=== PATIENT | male | born 1930 | race Caucasian/White ===

== ENCOUNTER 2016-09-02 23:49 | Inpatient (IN) | payer MEDICARE, BC ==
[~2016-09-02] VITALS: Ht 162.6 cm; Wt 71.5 kg
[~2016-09-02 23:49] MED LIST: ACYC-57 PO; CEPH-368 PO; DICL1TAB49 PO; DULO30CA2 PO; EZET1TAB4 PO; FINA5TAB4 PO; GLUC500T8 PO; HYDR-3138 PO; HYDR25TA6 PO; LEVO500T33 PO; Levofloxacin PO; MULT-82 PO; OXYC5CAP4 PO; PHEN100C PO; POTA20PA8 PO; TERA1CAP3 PO
[2016-09-03] VITALS (7 sets, daily range): BP systolic 96–133; BP diastolic 49–71
[2016-09-03] MEDS ORDERED: ONDANSETRON 2MG/ML, 2ML IVPush ONE
[2016-09-03] MEDS ORDERED: SODIUM CHLORIDE 0.9% 1,000ML IVBOLUS ONE
[2016-09-03] MEDS ORDERED: SODIUM CHLORIDE FLUSH 10ML SYR IVF ONE
[2016-09-03] MEDS ORDERED: MORPHINE SULFATE 4 MG/ML, 1ML IVPush PRN
[2016-09-03] MEDS ORDERED: MORPHINE SULFATE 4 MG/ML, 1ML ONE ×2 (00:14→00:45)
[2016-09-03] MEDS ORDERED: ONDANSETRON 2MG/ML, 2ML ONE (00:15)
[2016-09-03 00:23] LABS: ASPARTATE AMINO TRANSFERASE 59 U/L (15-37); BLOOD UREA NITROGEN 24 mg/dL (7-18)
[2016-09-03 00:51] LABS: PATH.CAST-FLAG NOT PRESENT; SPERM-FLAG NOT PRESENT; SRC-FLAG NOT PRESENT; XTAL-FLAG NOT PRESENT; YLC-FLAG NOT PRESENT
[2016-09-03] MEDS ORDERED: FENTANYL PF 100 MCG/2ML IVPush PRN (01:00)
[2016-09-03] MEDS ORDERED: CEFTRIAXONE PMX 1GM/50ML 50 ML ONE (01:04)
[2016-09-03] MEDS ORDERED: CEFTRIAXONE PMX 1GM/50ML 50 ML IV ONE (01:30)
[2016-09-03] MEDS ORDERED: HYDR-3240 PO (01:49)
[2016-09-03] MEDS ORDERED: DICL1TAB49 PO (01:49)
[2016-09-03] MEDS ORDERED: FESO4TAB PO (01:49)
[2016-09-03] MEDS ORDERED: FINA5TAB4 PO (01:49)
[2016-09-03] MEDS ORDERED: EZET1TAB4 PO (01:49)
[2016-09-03] MEDS ORDERED: OXYC5CAP4 PO (01:49)
[2016-09-03] MEDS ORDERED: DULO30CA2 PO (01:50)
[2016-09-03] MEDS ORDERED: SODIUM CHLORIDE 0.9%, 500ML IVBOLUS ONE (02:30)
[2016-09-03] MEDS ORDERED: DOCUSATE 100 MG CAPSULE PO PRN (02:30)
[2016-09-03] MEDS ORDERED: ONDANSETRON 2MG/ML, 2ML IVPush PRN (02:30)
[2016-09-03] MEDS ORDERED: PROMETHAZINE 25 MG/ML, 1ML IM PRN (02:30)
[2016-09-03] MEDS: POTASSIUM CHLORIDE 20 MEQ TAB.ER.PRT PO SCH ×4 (02:30→18:41)
[2016-09-03] MEDS ORDERED: BISACODYL 10 MG SUPP PR PRN (02:30)
[2016-09-03] MEDS ORDERED: POLYETHYLENE GLYCOL 17 GM PACKET PO PRN (02:30)
[2016-09-03] MEDS: SODIUM CHLORIDE 0.9% 1,000 ML IV SCH ×3 (03:52→18:31)
[2016-09-03 06:20] LABS: ASPARTATE AMINO TRANSFERASE 124 U/L (15-37); BLOOD UREA NITROGEN 22 mg/dL (7-18)
[2016-09-03] MEDS: PHENYTOIN 100 MG CAPSULE PO SCH ×2 (09:00→09:52)
[2016-09-03] MEDS: FESOTERODINE FUMARATE 4 MG PO SCH (09:00)
[2016-09-03] MEDS: TERAZOSIN 1MG CAPSULE PO SCH ×2 (09:52→21:22)
[2016-09-03] MEDS: ENOXAPARIN 40 MG/0.4 ML SQ SCH (09:52)
[2016-09-03] MEDS: DULOXETINE 30 MG CAPSULE.DR PO SCH (09:52)
[2016-09-03] MEDS: FINASTERIDE 5 MG TABLET PO SCH (09:53)
[2016-09-03] MEDS: SENNA/DOCUSATE TABLET PO SCH (09:56)
[2016-09-03] MEDS: HYDROcodone/APAP 5/325 TABLET PO PRN (14:31)
[2016-09-03] MEDS ORDERED: TAMS0.4C2 PO (16:50)
[2016-09-03] MEDS ORDERED: ASCO500T8 PO (16:50)
[2016-09-03] MEDS ORDERED: DICL1TAB5 PO (16:50)
[2016-09-03] MEDS ORDERED: Calcium (16:50)
[2016-09-03] MEDS ORDERED: GLUC1000 PO (16:50)
[2016-09-03] MEDS: FLUTICASONE/VILANTEROL 100-25MCG/INH INH SCH (17:09)
[2016-09-03] MEDS: EZETIMIBE 10 MG TABLET PO SCH (21:23)
[2016-09-03] MEDS: SIMVASTATIN 20 MG TABLET PO SCH (21:23)
[2016-09-04 01:28] VITALS: BP 116/57
[2016-09-04] MEDS: SODIUM CHLORIDE 0.9% 1,000 ML IV SCH ×4 (01:33→17:04)
[2016-09-04] MEDS: CEFTRIAXONE PMX 1GM/50ML 50 ML IV SCH (01:33)
[2016-09-04] MEDS: HYDROcodone/APAP 5/325 TABLET PO PRN ×2 (04:27→20:39)
[2016-09-04 05:42] LABS: BLOOD UREA NITROGEN 25 mg/dL (7-18)
[2016-09-04 05:47] LABS: ASPARTATE AMINO TRANSFERASE 70 U/L (15-37)
[2016-09-04 06:40] VITALS: BP 108/59
[2016-09-04] MEDS: SENNA/DOCUSATE TABLET PO SCH (08:00)
[2016-09-04] MEDS: DULOXETINE 30 MG CAPSULE.DR PO SCH (08:00)
[2016-09-04] MEDS: TERAZOSIN 1MG CAPSULE PO SCH ×2 (08:00→19:58)
[2016-09-04] MEDS: FINASTERIDE 5 MG TABLET PO SCH (08:00)
[2016-09-04] MEDS: FESOTERODINE FUMARATE 4 MG PO SCH (08:01)
[2016-09-04] MEDS: ENOXAPARIN 40 MG/0.4 ML SQ SCH (08:01)
[2016-09-04] MEDS: FLUTICASONE/VILANTEROL 100-25MCG/INH INH SCH (08:01)
[2016-09-04 12:27] VITALS: BP 149/79
[2016-09-04 16:41] VITALS: BP 144/81
[2016-09-04 19:24] VITALS: BP 139/71
[2016-09-04] MEDS: SIMVASTATIN 20 MG TABLET PO SCH (19:58)
[2016-09-04] MEDS: EZETIMIBE 10 MG TABLET PO SCH (19:58)
[2016-09-05 01:29] VITALS: BP 120/63
[2016-09-05] MEDS: CEFTRIAXONE PMX 1GM/50ML 50 ML IV SCH (02:35)
[2016-09-05 06:38] VITALS: BP 150/93
[2016-09-05] MEDS: ENOXAPARIN 40 MG/0.4 ML SQ SCH (09:05)
[2016-09-05] MEDS: FINASTERIDE 5 MG TABLET PO SCH (09:06)
[2016-09-05] MEDS: DULOXETINE 30 MG CAPSULE.DR PO SCH (09:06)
[2016-09-05] MEDS: TERAZOSIN 1MG CAPSULE PO SCH ×2 (09:06→20:38)
[2016-09-05] MEDS: SENNA/DOCUSATE TABLET PO SCH (09:06)
[2016-09-05] MEDS: FLUTICASONE/VILANTEROL 100-25MCG/INH INH SCH (09:06)
[2016-09-05] MEDS: FESOTERODINE FUMARATE 4 MG PO SCH (09:07)
[2016-09-05 09:12] LABS: BLOOD UREA NITROGEN 15 mg/dL (7-18)
[2016-09-05 09:15] LABS: ASPARTATE AMINO TRANSFERASE 50 U/L (15-37)
[2016-09-05] MEDS: HYDROcodone/APAP 5/325 TABLET PO PRN ×3 (13:22→21:07)
[2016-09-05 13:46] VITALS: BP 177/93
[2016-09-05 18:41] VITALS: BP 120/56
[2016-09-05] MEDS: EZETIMIBE 10 MG TABLET PO SCH (20:37)
[2016-09-05] MEDS: SIMVASTATIN 20 MG TABLET PO SCH (20:37)
[2016-09-06 01:50] VITALS: BP 155/73
[2016-09-06 06:33] VITALS: BP 164/97
[2016-09-06] MEDS: FLUTICASONE/VILANTEROL 100-25MCG/INH INH SCH (08:50)
[2016-09-06] MEDS: ENOXAPARIN 40 MG/0.4 ML SQ SCH (08:51)
[2016-09-06] MEDS: DULOXETINE 30 MG CAPSULE.DR PO SCH (08:51)
[2016-09-06] MEDS: TERAZOSIN 1MG CAPSULE PO SCH (08:51)
[2016-09-06] MEDS: FINASTERIDE 5 MG TABLET PO SCH (08:51)
[2016-09-06] MEDS: FESOTERODINE FUMARATE 4 MG PO SCH (08:52)
[2016-09-06] MEDS: SENNA/DOCUSATE TABLET PO SCH (08:52)
[2016-09-06] MEDS ORDERED: CEFDINIR 300 MG CAPSULE PO SCH (09:00)
[2016-09-06] MEDS ORDERED: OXYcodone IR 5MG TABLET PO PRN (09:30)
[2016-09-06] MEDS ORDERED: OXYcodone IR 5MG TABLET PO ONE (12:30)
[2016-09-06 13:49] VITALS: BP 177/99
[2016-09-06] MEDS ORDERED: CEFD300C37 PO (14:33)
[2016-09-06] MEDS ORDERED: OXYC5CAP4 PO (14:33)
[2016-09-06] MEDS ORDERED: LACT1CAP24 PO (14:33)
[2016-09-06] MEDS ORDERED: FLUT1AER INH (14:33)
[2016-09-06 15:00] VITALS: BP 157/90
== END 2016-09-06 17:00 | DRG 872 ==
LOC: ED 23:59 → EDIP 09-03 01:42 → SUATTDRO 09-03 01:57 → 3NE 09-03 03:46 → 4EST 09-03 06:03 → 3NE 09-04 16:29
PROVIDERS: ADMIT Internal Medicine; ATTEND Internal Medicine
DX: A41.9 Sepsis, unspecified organism (principal); E87.1 Hypo-osmolality and hyponatremia; N30.00 Acute cystitis without hematuria; G89.11 Acute pain due to trauma; Z66 Do not resuscitate; D69.6 Thrombocytopenia, unspecified; E86.0 Dehydration; G40.909 Epilepsy, unspecified, not intractable, without status epilepticus; G62.9 Polyneuropathy, unspecified; G89.29 Other chronic pain; I10 Essential (primary) hypertension; J44.9 Chronic obstructive pulmonary disease, unspecified; E87.6 Hypokalemia; M19.90 Unspecified osteoarthritis, unspecified site; R33.9 Retention of urine, unspecified; M54.9 Dorsalgia, unspecified; K66.8 Other specified disorders of peritoneum; M81.0 Age-related osteoporosis without current pathological fracture; B96.20 Unspecified Escherichia coli [E. coli] as the cause of diseases classified elsewhere; S39.012A Strain of muscle, fascia and tendon of lower back, initial encounter; Z79.2 Long term (current) use of antibiotics; Z79.899 Other long term (current) drug therapy; Z88.6 Allergy status to analgesic agent; Z88.8 Allergy status to other drugs, medicaments and biological substances; W01.0XXA Fall on same level from slipping, tripping and stumbling without subsequent striking against object, initial encounter; Y92.002 Bathroom of unspecified non-institutional (private) residence as the place of occurrence of the external cause; Y93.89 Activity, other specified; Y99.8 Other external cause status
CPT/HCPCS: 36415; 71010; 72110; 73523; 76700; 80053; 80185; 81001; 82533; 82962; 83605; 83735; 84100; 84443; 85025; 87040; 87077; 87086; 87186; 95819; 96361; 96365; 96375; J0696; J1650; J2405; J7030; J7040

== ENCOUNTER 2017-10-18 11:45 | Emergency (ER) | payer MEDICARE, BC ==
[~2017-10-18] VITALS: Ht 182.9 cm; Wt 91.0 kg
[~2017-10-18 11:45] MED LIST changes: +ASCO500T8 PO; +CEFD300C37 PO; +Calcium; +DICL1TAB5 PO; +EZET1TAB30 PO; -EZET1TAB4 PO; +FESO4TAB PO; +FLUT1AER INH; +GLUC1000 PO; +GLUC500T11 PO; -GLUC500T8 PO; -HYDR-3138 PO; +HYDR-3237 PO; +HYDR-3240 PO; +LACT1CAP24 PO; -LEVO500T33 PO; +LEVO500T47 PO; +MULT-224 PO; -MULT-82 PO; +OXYC5CAP2 PO; -OXYC5CAP4 PO; +POTA20PA25 PO; -POTA20PA8 PO; +TAMS0.4C2 PO
[2017-10-18] MEDS ORDERED: BACITRACIN ZINC OINT 500U/GM, 0.9 GM ONE (11:56)
[2017-10-18] MEDS ORDERED: SODIUM CHLORIDE FLUSH 10ML SYR IVF ONE (12:00)
[2017-10-18 12:06] LABS: BASOPHILS # (AUTO) 0.01 x10^3/uL (0-0.1); BASOPHILS % (AUTO) 0 % (0-1); EOSINOPHILS # (AUTO) 0.01 x10^3/uL (0-0.4); EOSINOPHILS % (AUTO) 0 % (1-7); LYMPHOCYTES # (AUTO) 0.76 x10^3/uL (1-3.4); LYMPHOCYTES % (AUTO) 24 % (22-44); MD NO; MEAN CORPUSCULAR HEMOGLOBIN 28.4 pg (27.5-34.5); MEAN CORPUSCULAR HGB CONC 33.7 g/dL (33.2-36.2); MEAN CORPUSCULAR VOLUME 84.4 fL (81-97); MEAN PLATELET VOLUME 8.3 fL (7.4-10.4); MONOCYTES # (AUTO) 0.57 x10^3/uL (0.2-0.8); MONOCYTES % (AUTO) 18 % (2-9); NEUTROPHILS # (AUTO) 1.87 x10^3/uL (1.8-6.8); NEUTROPHILS % (AUTO) 58 % (42-75); PLATELET COUNT 185 x10^3/uL (130-400); RED BLOOD COUNT 5.16 x10^6/uL (4.38-5.82); RED CELL DISTRIBUTION WIDTH 13.5 % (9.4-14.8)
[2017-10-18 12:17] LABS: INTERNATIONAL NORMALIZED RATIO 1.1 (0.93-1.1); PROTHROMBIN TIME 11.3 Seconds (9.6-11.5)
[2017-10-18 12:19] LABS: ALANINE AMINOTRANSFERASE 21 U/L (12-78); ALBUMIN 3.6 g/dL (3.4-5.0); ANION GAP 11 mmol/L (5-15); CALCIUM 8.6 mg/dL (8.5-10.1); CHLORIDE 102 mmol/L (98-107)
[2017-10-18 12:23] LABS: ALKALINE PHOSPHATASE 82 U/L (45-117); BILIRUBIN,TOTAL 0.6 mg/dL (0.2-1.0); TOTAL PROTEIN 7.2 g/dL (6.4-8.2); TROPONIN I < 0.015 ng/mL (0.000-0.045)
[2017-10-18 13:48] VITALS: BP 151/80
== END 2017-10-18 13:52 | disposition home or self-care (01) ==
LOC: ED 12:37
DX: S51.012A Laceration without foreign body of left elbow, initial encounter (principal); R55 Syncope and collapse; I10 Essential (primary) hypertension; J44.9 Chronic obstructive pulmonary disease, unspecified; W18.39XA Other fall on same level, initial encounter; Y93.89 Activity, other specified; Y92.89 Other specified places as the place of occurrence of the external cause; Y99.8 Other external cause status
CPT/HCPCS: 36415; 70450; 71045; 72125; 80053; 84484; 85025; 85610; 85730; 93005; 99285